=== PATIENT | female | born 1985 | race Caucasian/White ===

== ENCOUNTER → 2023-06-16 07:52 | Outpatient (REF) | payer BC, SELFPAY ==
[2023-06-16 08:23] LABS: % Basophils 1.5 % (0-2); % Immature Granulocytes 0.2 % (0-0.5); % Monocytes 9.7 % (1.7-9.3); % Neutrophils 48.6 % (42.2-75.2); Absolute Basophils 0.1 10^3/uL (0-0.2); Absolute Eosinophils 0.2 10^3/uL (0-0.7); Absolute Lymphocytes 1.6 10^3/uL (1.2-3.4); Absolute Monocytes 0.4 10^3/uL (0.1-0.6); Absolute Neutrophils 2.2 10^3/uL (1.4-6.5); Hematocrit 37.3 % (37.0-47.0); Hemoglobin 12.2 g/dL (12.0-16.0); Mean Corp Hgb Conc. 32.7 g/dL (33.0-37.0); Mean Corpuscular Hgb 29.2 pg (27.0-31.0); Mean Corpuscular Volume 89.2 fL (81.0-99.0); Mean Platelet Volume 10.3 fL (7.4-10.4); Nucleated Red Blood Cells % 0 %; Platelet Count 204 10^3/uL (130-400); Red Blood Cell Count 4.18 10^6/uL (4.20-5.40); White Blood Cell Count 4.5 10^3/uL (4.8-10.8)
[2023-06-16 09:00] LABS: Glycohemoglobin (HgbA1c) 5.3 % (4.0-5.6)
[2023-06-16 09:03] LABS: ALT (SGPT) 26 U/L (0-35); AST (SGOT) 34 U/L (14-36); Albumin 4.3 g/dl (3.5-5.0); Alkaline Phosphatase 53 U/L (38-126); Blood Urea Nitrogen 18 mg/dl (7-17); Calcium 8.8 mg/dl (8.4-10.2); Carbon Dioxide 26 mmol/L (22-30); Chloride 107 mmol/L (98-107); Glucose 97 mg/dl (70-99); HDL Cholesterol 74 mg/dl; LDL Cholesterol, Calculated 75 mg/dl; Potassium 4.1 mmol/L (3.5-5.1); Sodium 137 mmol/L (135-145); Total Bilirubin 0.5 mg/dl (0.2-1.3); Total Cholesterol 156 mg/dl (50-199); Total Protein 6.9 g/dl (6.3-8.2); Triglyceride 39 mg/dl (10-149); Very Low Density Lipoprotein 7 mg/dl (0-30); eGFR > 60.00
[2023-06-16 09:31] LABS: Free T4 0.82 ng/dl (0.78-2.19); Vitamin D, 25-OH*** 55.5 ng/mL (30-80)
[2023-06-16 09:44] LABS: TSH 3.31 uIU/ml (0.47-4.68)
[2023-06-16 09:48] LABS: Ferritin 7.9 ng/ml (6.24-137)
== END ==
LOC: REG 07:52
PROVIDERS: ATTENDING PHYSICIAN Physician Assistant; FAMILY PHYSICIAN Family Medicine
DX: Z76.89 Persons encountering health services in other specified circumstances (principal); Z13.9 Encounter for screening, unspecified; F41.1 Generalized anxiety disorder; R21 Rash and other nonspecific skin eruption; N92.6 Irregular menstruation, unspecified
CPT/HCPCS: 36415; 80053; 80061; 82306; 82728; 83036; 84439; 84443; 85025

== ENCOUNTER → 2023-08-07 07:17 | Outpatient (REF) | payer BC, SELFPAY ==
[2023-08-07 08:20] LABS: Erythrocyte Sed Rate 13 mm/hour (0-20)
[2023-08-07 10:09] LABS: Iron 58 ug/dl (37-170)
[2023-08-07 10:19] LABS: Percent Saturation 16 % (20-50); Total Iron Binding Capacity 345 ug/dl (265-497)
[2023-08-07 12:07] LABS: C-Reactive Protein < 5.00 mg/L (0.0-10.00)
[2023-08-07 12:42] LABS: FSH 4.8 mIU/ml
[2023-08-10 14:54] LABS: Sex Hormone Binding Globulin 82 nmol/L (25-122); Total Testosterone,Female/Chil 33 ng/dL (9-55)
== END ==
LOC: REG 07:17
PROVIDERS: ATTENDING PHYSICIAN Physician Assistant
DX: F41.1 Generalized anxiety disorder (principal); N92.6 Irregular menstruation, unspecified; R21 Rash and other nonspecific skin eruption
CPT/HCPCS: 36415; 83001; 83540; 83550; 84270; 84402; 84403; 85652; 86140